=== PATIENT | female | born 1980 | race Caucasian/White ===

== ENCOUNTER 2020-04-30 07:09 | Emergency (ER) | payer OTHER, SELFPAY ==
--- NOTE | ~2020-04-30 | XR_ITS ---
EXAMINATION: XR chest 2V 04/30/2020 08:09 INDICATION: Wheezing and shortness of breath. History of asthma. PROCEDURE: 2 view chest COMPARISON: 12/19/2015 FINDINGS: The lungs are clear. The cardiomediastinal silhouette is within normal limits. There are no pleural effusions. There is no pneumothorax suspected. 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 IMPRESSION: 1: NO ACUTE CARDIOPULMONARY DISEASE. Reviewed, dictated and finalized at location B.
--- NOTE | 2020-04-30 07:21 | ED.ASTHMA ---
HPI - Asthma General Chief Complaint: Asthma Stated Complaint: asthma flare Time Seen by Provider: 04/30/20 07:21 History of Present Illness HPI Narrative: Increased asthma symptoms for the past few days. Worse today. She is having wheezing, and SOB even at rest. She has been taking all of her asthma medications as prescribed. No specific trigger identified. No CP, cough, fever. Related Data Home Medications Medication Instructions Recorded Confirmed budesonide-formoterol [Symbicort] INHALATION 04/30/20 Allergies Allergy/AdvReac Type Severity Reaction Status Date / Time No Known Allergies Allergy Verified 04/30/20 07:27 Review of Systems Review of Systems: All systems reviewed & are unremarkable except as noted in HPI and below Constitutional: Constitutional: Denies chills, Denies fever(s) and Denies weakness ENT: Denies sore throat Cardiovascular: Cardiovascular: Denies chest pain Respiratory: Respiratory: Denies chest congestion, Denies cough, Reports dyspnea and Reports wheezing Gastrointestinal: Gastrointestinal: Denies abdominal pain, Denies nausea and Denies vomiting Genitourinary: Genitourinary: Denies dysuria Musculoskeletal: Musculoskeletal: Denies back pain Comments: No calf pain or swelling Neurologic: Denies dizziness and Denies weakness PMFSH Past Medical History Medical History (Updated 04/30/20 @ 07:52 by Khoa Hector MD) Asthma Seasonal allergies Social History Social History (Updated 04/30/20 @ 07:52 by Khoa Hector MD) Gender identity (if verbalized by the patient): Female Exam Const: General: healthy appearing, no acute distress and alert Orientation/consciousness: patient oriented x3 HENMT: Head: normal to inspection Resp: Effort & Inspection: normal respiratory effort, not labored and no use of accessory muscles Auscultation: wheezes expiratory wheezes, inspiratory wheezes and throughout Cardio: Rate: regular rate Rhythm: regular rhythm Skin: General skin exam: normal color Neuro: General: patient oriented x3, moves all extremities and CN's II-XI intact bilaterally Speech: normal speech Extrem: General: normal to inspection and no edema Course Vital Signs Vital signs: Vital Signs Temperature 35.6 C L 04/30/20 07:22 Pulse Rate 62 04/30/20 07:22 Respiratory Rate 16 04/30/20 07:22 Blood Pressure 143/76 H 09/18/20 07:22 Pulse Oximetry 97 04/30/20 07:22 Temperature 35.6 C L 04/30/20 07:22 Pulse Rate 62 04/30/20 07:22 Respiratory Rate 16 04/30/20 07:22 Blood Pressure 143/76 H 04/30/20 07:22 Pulse Oximetry 97 04/30/20 07:22 Discharge Plan Discharge Prescriptions: No Action budesonide-formoterol [Symbicort] 160-4.5 mcg/actuation HFA aerosol inhaler INHALATION RF: 0
[2020-04-30 07:22] VITALS: BP 143/76; PULSE 62; RESP 16; TEMP 35.6; O2SAT 97
[2020-04-30] MEDS: predniSONE 20 MG TABLET 60 MG PO (07:32)
[2020-04-30] MEDS: ALBUTEROL SULFATE NEB 2.5 MG/0.5 ML INH 10 MG INHALATION (07:45)
[2020-04-30] MEDS: IPRATROPIUM BR 0.02% INH SOLN 0.5 MG/2.5 ML VIAL 1 MG INHALATION (07:46)
[2020-04-30 07:48] VITALS: PULSE 64; RESP 20
--- NOTE | 2020-04-30 08:01 | PC.NURSE ---
Called to give report, was asked by Amaris if she could call me back.
[2020-04-30 08:50] VITALS: PULSE 60; RESP 16
[2020-04-30 09:26] VITALS: BP 124/78; PULSE 77; RESP 18; O2SAT 99
== END 2020-04-30 09:44 | disposition home or self-care (01) ==
PROVIDERS: Emergency Provider Emergency Medicine
DX: J45.901 Unspecified asthma with (acute) exacerbation (principal)
CPT/HCPCS: 71046; 94640; 99283; J7512

== ENCOUNTER 2021-02-02 08:15 | Emergency (ER) | payer OTHER, SELFPAY ==
--- NOTE | ~2021-02-02 | XR_ITS ---
EXAMINATION: XR knee RT 3V DATE: 02/02/2021 09:41 INDICATION: Right knee pain TECHNIQUE: Three views of the right knee were obtained. COMPARISON: None. FINDINGS: Alignment is normal. No fracture or osteochondral lesion. There is mild tricompartmental os teoarthritis characterized by tiny marginal osteophytes. No joint effusion/synovitis. Soft tissues a re unremarkable. IMPRESSION: 1. No acute osseous abnormality. Reviewed, dictated and finalized at location A.
[2021-02-02 08:21] VITALS: BP 124/86; PULSE 56; RESP 18; TEMP 36.6; O2SAT 99
--- NOTE | 2021-02-02 10:06 | ED.GENADULT ---
HPI - General Adult General Chief complaint: Extremity Problem,Nontraumatic Stated complaint: right knee pain Time Seen by Provider: 02/02/21 09:01 Source: patient and RN notes reviewed Mode of arrival: ambulatory Limitations: no limitations History of Present Illness HPI narrative: Patient is a 40-year-old female who presents with right knee pain that is chronic in nature worse over the last 2 days involving the entirety of the knee denies injury or trauma pain worse with activity and movement has been taken Tylenol with minimal improvement denies any radiation paresthesias Related Data Home Medications Medication Instructions Recorded Confirmed budesonide-formoterol [Symbicort] INHALATION 04/30/20 Allergies Allergy/AdvReac Type Severity Reaction Status Date / Time No Known Allergies Allergy Verified 04/30/20 07:27 Review of Systems Review of Systems: All systems reviewed & are unremarkable except as noted in HPI and below PMFSH Past Medical History Medical History Asthma Seasonal allergies Social History Social History Gender identity (if verbalized by the patient): Female Exam Narrative: Exam Narrative: GENERAL: Well-appearing, well-nourished, and in no acute distress. HEAD: Normocephalic, atraumatic. EYES: PERRLA and EOMI. ENT: Nares clear, no rhinorrhea or epistaxis. Mucous membranes moist. CHEST: Clear to auscultation. No respiratory distress. No wheezes rales or rhonchi HEART: Regular rate and rhythm. No murmur heard. Normal peripheral pulses.. EXTREMITIES: Normal range of motion. No edema. Tenderness of the right knee no deformities noted SKIN: Warm, dry, no rash. NEURO: No focal deficits. Alert and oriented x3. Neurovascularly intact. Capillary refill less than 2 seconds PSYCH: Normal mood and affect. Course Course Emergency Course: Patient evaluated in the emergency department placed in Janes wrap negative radiographs referred to orthopedics and primary care Vital Signs Vital signs: Vital Signs Temperature 97.9 F 02/02/21 08:21 Pulse Rate 56 L 02/02/21 08:21 Respiratory Rate 18 02/02/21 08:21 Blood Pressure 124/86 02/02/21 08:21 Pulse Oximetry 99 02/02/21 08:21 Temperature 97.9 F 02/02/21 08:21 Pulse Rate 56 L 02/02/21 08:21 Respiratory Rate 18 02/02/21 08:21 Blood Pressure 124/86 02/02/21 08:21 Pulse Oximetry 99 02/02/21 08:21 Medical Decision Making MDM Narrative Medical decision making narrative: Patients injury or pain is consistent with musculoskeletal etiology. No signs of neurological or vascular compromise on exam. Compartments and tisues are soft without signs of compartment syndrome. Pain is felt appropriate for further evaluation on an outpatient basis. Vital Signs Vital Signs: Vital Signs Temperature 97.9 F 02/02/21 08:21 Pulse Rate 56 L 02/02/21 08:21 Respiratory Rate 18 02/02/21 08:21 Blood Pressure 124/86 02/02/21 08:21 Pulse Oximetry 99 02/02/21 08:21 Temperature 97.9 F 02/02/21 08:21 Pulse Rate 56 L 02/02/21 08:21 Respiratory Rate 18 02/02/21 08:21 Blood Pressure 124/86 02/02/21 08:21 Pulse Oximetry 99 02/02/21 08:21 Imaging Data Radiologist's impression: ITS Impressions Knee X-Ray 02/02/21 09:43 IMPRESSION: 1. No acute osseous abnormality. Discharge Plan Discharge Clinical Impression: Acute pain of right knee Patient Disposition: Home, Self-Care Condition: Stable Instructions: Antibiotic Form, Arthralgia (ED) Additional Instructions: Wear Janes wrap with limited weight on the affected leg until able to bear weight without pain. Ice and elevate extremity. Pain medication as needed and directed. Follow up with your doctor for further care in the next 7 days. Return if symptoms worsen or concerns or any increase in redness swelling 100.5 or
[2021-02-02 10:23] VITALS: BP 118/75; PULSE 61; RESP 16; O2SAT 99
== END 2021-02-02 10:30 | disposition home or self-care (01) ==
PROVIDERS: Emergency Provider Emergency Medicine
DX: M25.561 Pain in right knee (principal)
CPT/HCPCS: 73562; 99283

== ENCOUNTER 2022-12-14 08:11 | Emergency (ER) | payer OTHER, SELFPAY ==
[2022-12-14 08:11] VITALS: BP 128/71; PULSE 63; RESP 16; TEMP 36.7; O2SAT 99
--- NOTE | 2022-12-14 09:23 | ED.EXTPRO ---
HPI - Extremity Problem General Chief complaint: Extremity Problem,Nontraumatic Stated complaint: L BUTTOCK/LEG PAIN Time Seen by Provider: 12/14/22 08:57 History of Present Illness HPI Narrative: Patient is a 42-year-old female here for evaluation of pain in her left buttock x1 week. Patient states the pain came on after she went from sitting to standing, described it as a squeezing sensation that will radiate down her lateral thigh into her foot. Patient states the pain is worse with certain movements. She has attempted ibuprofen without relief of her symptoms. States last night it was difficult to sleep due to frequently tossing and turning. History of similar sensation when she was with her daughter. She has had no trauma to the back, no fevers, urinary changes, incontinence or retention of bowel or bladder, saddle anesthesia. Some degree of chronic overflow incontinence since having children, no worse than usual. Related Data Home Medications Medication Instructions Recorded Confirmed cetirizine 10 mg tablet 10 mg PO DAILY PRN 06/14/21 06/14/21 montelukast 10 mg tablet 10 mg PO DAILY 06/14/21 06/14/21 Allergies Allergy/AdvReac Type Severity Reaction Status Date / Time No Known Allergies Allergy Verified 06/14/21 10:43 Review of Systems Review of Systems: Gen.: Denies fevers or chills Eyes: Denies eye pain or visual change ENT: Denies congestion Respiratory: Denies shortness of breath or cough CV: Denies chest pain or palpitations GI: Denies abdominal pain nausea, emesis or diarrhea : denies burning, urgency, frequency or hematuria Musculoskeletal: Reports back pain Neuro: Denies numbness, tingling, weakness or focal weakness Skin: Denies rash Except as documented, all other systems reviewed and negative PMFSH Past Medical History Medical History Asthma Seasonal allergies Social History Social History (Updated 06/14/21 @ 10:47 by Arabella Delvalle [facility]) Smoking status: Never smoker Gender identity (if verbalized by the patient): Female Exam Narrative: APPEARANCE: Well appearing, no pain in distress, well-nourished. Head: Normocephalic and atraumatic. EYES: PERRLA/EOMI, conjunctivae clear NOSE: No nasal drainage EARS: External ear normal in appearance THROAT: Oropharynx is clear. Mucous membranes are moist. NECK: Supple. No adenopathy, no masses. RESPIRATORY: Airway patent, respirations nonlabored. Clear to auscultation bilaterally, no rales, rhonchi, wheezing. CARDIOVASCULAR: Regular rate and rhythm without murmurs, rubs, or gallops. ABDOMINAL: Normoactive bowel sounds. Soft, nontender, nondistended. No rebound tenderness or guarding. MUSCULOSKELETAL: There is no midline tenderness to the C, T or L-spine. Straight leg raise is positive on the left. NEURO: Normal speech. No focal neurologic deficits. SKIN: Skin is warm and dry. No rashes. PSYCHIATRIC: Normal affect/mood. Course Vital Signs Vital signs: Vital Signs Temperature 98.1 F 12/14/22 08:11 Pulse Rate 63 12/14/22 08:11 Respiratory Rate 16 12/14/22 08:11 Blood Pressure 128/71 12/14/22 08:11 Pulse Oximetry 99 12/14/22 08:11 Temperature 98.1 F 12/14/22 08:11 Pulse Rate 63 12/14/22 08:11 Respiratory Rate 16 12/14/22 08:11 Blood Pressure 128/71 12/14/22 08:11 Pulse Oximetry 99 12/14/22 08:11 MDM - Extremity (Nontraumatic) MDM Narrative Medical decision making narrative: 42-year-old female here for evaluation of low back pain over the past week that radiates down her leg. This patient presents with back pain most consistent with . Differential diagnoses includes lumbago versus musculoskeletal spasm / strain versus sciatica. No back pain red flags on history or physical. Presentation not consistent with malignancy (lack of history of malignancy, lack of B symptoms), fracture (no trauma, no bony tenderness to palp
[2022-12-14] MEDS: CYCLOBENZAPRINE HCL 5 MG TABLET PO (09:26)
[2022-12-14] MEDS: LIDOCAINE 5% PATCH 1 PATCH TRANSDERM (09:26)
[2022-12-14] MEDS: MELOXICAM 7.5 MG TABLET PO (09:47)
[2022-12-14 10:25] VITALS: BP 116/73; PULSE 60; RESP 18; O2SAT 97
== END 2022-12-14 10:25 | disposition home or self-care (01) ==
PROVIDERS: Emergency Provider Physician Assistant
DX: M54.42 Lumbago with sciatica, left side (principal); J45.909 Unspecified asthma, uncomplicated
CPT/HCPCS: 99283; A9270

== ENCOUNTER 2023-12-25 09:18 | Emergency (ER) | payer BC, SELFPAY ==
[2023-12-25] VITALS (11 sets, daily range): BP systolic 143–151; BP diastolic 62–78; PULSE 67–85; RESP 12–24; TEMP 36.4; O2SAT 94–100
--- NOTE | ~2023-12-25 | XR_ITS ---
Clinical Indication: Asthma PA and lateral views of the chest: Comparison: 04/30/2020 Findings: The lungs are clear, without evidence of focal consolidation or pleural effusion. Cardiome diastinal silhouette is within normal limits. Bones and soft tissues are unremarkable. Impression: Normal chest. Reviewed, dictated and finalized at [facility]. Impression: Normal chest.
--- NOTE | 2023-12-25 09:41 | ED.ASTHMA ---
HPI - Asthma General Chief Complaint: Asthma Stated Complaint: asthma Time Seen by Provider: 12/25/23 09:23 Source: patient Mode of arrival: ambulatory Limitations: no limitations History of Present Illness HPI Narrative: Patient is a 43-year-old female who presents to the ED with report of shortness of breath. Patient has history of asthma and feels as though her asthma has flared up. Reports worsening since Sunday. Denies sick contacts. Reports productive cough, shortness of breath, wheezing, chest tightness. Denies fevers, congestion, sore throat. She does report some intermittent swelling in her lower extremities. History of meniscus repair on left side last year. Denies history of blood clots. Has been using her inhalers and nebulizer at home without improvement. Related Data Home Medications Medication Instructions Recorded Confirmed cetirizine 10 mg tablet 10 mg PO DAILY PRN 06/14/21 05/09/23 montelukast 10 mg tablet 10 mg PO DAILY 06/14/21 05/09/23 Allergies Allergy/AdvReac Type Severity Reaction Status Date / Time No Known Allergies Allergy Verified 05/09/23 10:07 Review of Systems Review of Systems: CONSTITUTIONAL: Denies fever, chills, or sweats. ENT: Denies rhinorrhea, congestion, sore throat. CARDIOVASCULAR: See HPI. RESPIRATORY: See HPI GASTROINTESTINAL: Denies abdominal pain, nausea, vomiting. NEUROLOGIC: Denies headache, dizziness, numbness, or weakness. All systems reviewed & are unremarkable except as noted in HPI and below PMFSH Past Medical History Medical History Asthma Seasonal allergies Social History Social History Smoking status: Never smoker Gender identity (if verbalized by the patient): Female Exam Narrative: GENERAL: Well appearing, obese with BMI of 39.6, non-toxic, in no acute distress. HEAD: Normocephalic, atraumatic. RESPIRATORY: Airway patent, respirations mildly labored, some accessory muscle use. Lung sounds are tight bilaterally, diffuse expiratory wheezing. CARDIOVASCULAR: Regular rate and rhythm without murmurs, rubs, or gallops. MUSCULOSKELETAL: Moves all extremities. No gross deformities. No calf tenderness. No lower extremity edema. SKIN: Warm, dry, normal color. NEURO: A&O X3. Speech clear. PSYCHIATRIC: Appropriate mood and affect. Normal interaction. Course Vital Signs Vital signs: Vital Signs Temperature 97.6 F 12/25/23 09:20 Pulse Rate 74 12/25/23 09:20 Respiratory Rate 18 12/25/23 09:20 Blood Pressure 151/62 H 12/25/23 09:20 Pulse Oximetry 100 12/25/23 09:20 Temperature 97.6 F 12/25/23 09:20 Pulse Rate 76 12/25/23 11:19 Respiratory Rate 18 12/25/23 11:19 Blood Pressure 143/78 H 12/25/23 10:17 Pulse Oximetry 98 12/25/23 11:19 Oxygen Delivery Room Air 12/25/23 10:10 Oxygen Flow Rate 8 12/25/23 10:00 MDM - Asthma MDM Narrative Medical decision making narrative: Patient presented to ED with asthma flare, shortness breath, chest tightness, new cough. Vital signs are stable upon arrival. Patient in no acute distress, lungs are tight bilaterally, diffuse wheezing noted. Hour long breathing treatment ordered. EKG without ischemic changes. Troponin is undetectable. BNP within normal limits. D-dimer WNL. Chest x-ray is clear. Basic laboratory studies are unremarkable. Viral swabs are negative. Patient feeling much better after breathing Tx. Lung sounds are much improved on re-auscultation. Discussed reassuring w/u. Patient feels comfortable with discharge home at this time. Will d/c on steroids and abx for asthma exacerbation given new productive cough. Advised patient to continue ambulated/inhalers at home, have close follow-up with PCP for further evaluation. Given strict return precautions. Discharged in stable condition. Vital signs stable at time of D/C. Oxyge
--- NOTE | 2023-12-25 09:49 | ECG_ITS ---
SEE SCANNED COPY FOR CONFIRMED REPORT MTDD
[2023-12-25] MEDS: LEVALBUTEROL NEB 1.25 MG/3 ML 2.5 MG (09:52)
[2023-12-25] MEDS: IPRATROPIUM BR 0.02% INH SOLN 0.5 MG/2.5 ML VIAL 1.5 MG INHALATION (09:52)
[2023-12-25] MEDS: LEVALBUTEROL NEB 1.25 MG/3 ML 2.5 MG INHALATION (09:52)
[2023-12-25] MEDS: methylPREDNISolone SOD SUCC 125 MG VIAL IV PUSH (09:53)
[2023-12-25 10:00] LABS: Basophils Absolute Auto 0.1 K/mm3 (0.0-0.1); Basophils Percent Auto 1.5 % (0.2-1.2); Eosinophils Absolute Auto 0.6 K/mm3 (0-0.3); Eosinophils Percent Auto 10.6 % (0-4.4); Hematocrit 36.7 % (37.0-47.0); Hemoglobin 11.5 g/dL (12.0-15.0); Immature Granulocyte Absolute 0.02 K/mm3 (0.00-0.031); Immature Granulocyte Percent A 0.4 % (0-0.5); Lymphocytes Percent Auto 27.1 % (18.3-44.2); Mean Corpuscular HGB Conc 31.3 g/dl (32-36); Mean Corpuscular Hemoglobin 24.8 pg (26-34); Mean Corpuscular Volume 79.3 fl (80-100); Mean Platelet Volume 11.3 fl (7.4-10.4); Monocytes Absolute Auto 0.4 K/mm3 (0.1-0.6); Monocytes Percent Auto 6.8 % (2.6-8.5); Neutrophils Absolute Auto 2.8 K/mm3 (1.3-6.7); Neutrophils Percent Auto 53.6 % (45.5-73.1); Platelet Count Result 289 k/mm3 (150-375); Red Blood Count 4.63 M/mm3 (4.2-5.4); White Blood Count 5.2 K/mm3 (4.5-10.0)
[2023-12-25 10:08] LABS: Alanine Aminotransferase 19 U/L (6-35); Alkaline Phosphatase 84 U/L (38-126); Anion Gap 6 mmol/L (4-12); Aspartate Amino Transferase 25 U/L (14-36); Bilirubin,Total 0.4 mg/dL (0.2-1.3); Blood Urea Nitrogen 6 mg/dL (7-17); Calcium 8.7 mg/dL (8.4-10.2); Carbon Dioxide 24 mmol/L (22-30); Chloride 108 mmol/L (98-107); Estimated CRCL calculation 109 ml/min; Estimated Glomerular Filt Rate > 60; Glucose 103 mg/dL (65-110); Potassium 3.7 mmol/L (3.4-5.0); Sodium 138 mmol/L (137-145)
[2023-12-25 10:20] LABS: NT Pro B Type Natriuretic Pept 85 pg/mL (19.9-100); Troponin I < 0.012 ng/mL (0.000-0.034)
[2023-12-25 10:28] LABS: INR 0.9; Prothrombin Time 12.8 Seconds (11.1-14.7)
[2023-12-25 10:35] LABS: Influenza A QL RT-PCR Negative (Negative); Influenza B QL RT-PCR Negative (Negative); RSV RNA, RT-PCR Negative (Negative); SARS-CoV-2 RNA PCR Negative (Negative)
[2023-12-25 10:50] LABS: D Dimer 0.32 ug/mL (<0.48)
== END 2023-12-25 11:35 | disposition home or self-care (01) ==
PROVIDERS: Emergency Provider Physician Assistant
DX: J45.901 Unspecified asthma with (acute) exacerbation (principal); Z20.822 Contact with and (suspected) exposure to COVID-19
CPT/HCPCS: 36415; 71046; 80053; 83880; 84484; 85025; 85380; 85610; 85730; 87637; 93005; 94640; 96374; 99284; J2919